=== PATIENT | male | born 1985 ===

== ENCOUNTER 2024-09-13 15:25 | Outpatient (AMB) | payer OTHER, SELFPAY ==
[2024-09-13 15:47] VITALS: BP 138/90; PULSE 78; TEMP 37.3; O2SAT 97
--- NOTE | 2024-09-13 15:47 | MHC.OFFWIV ---
Intake Vital Signs 09/13/24 15:47 Weight 289 lb BP 138/90 H Blood Pressure Location Rt brachial Position Sitting Pulse 78 Pulse Source Pulse Oximeter Temp 99.1 F Temp Source Oral Pulse Oximetry (%) 97 Oxygen Delivery Method Room Air Intake Visit Reasons: [employer] dizziness, upset stomach, headache Intake Note: Patient here for dizziness, GI upset and headache that started today. Patient Tobacco Use Status: Never used Tobacco Allergies No Known Allergies Allergy (Verified 09/13/24 15:49) Do you need a note to return to daycare/school/sports/work: No HPI HPI Comments History of Present Illness Details History - The patient is a 38-year-old male presenting with headache, dizziness, and gastrointestinal symptoms. - Symptoms had an acute onset around 2:00 PM today, marked by headache and dizziness, along with sensations of sweatiness. - Notably, the patient reported dry heaves but not actual vomiting. - Despite light sensitivity and discomfort from loud noises, there were no accompanying visual changes. - The patient denied symptoms such as chest or back pain, abdominal pain and did not present with fever. - He had not self-administered any treatment prior to evaluation. Physical Exam General: Cooperative, healthy appearing, comfortable and no acute distress Orientation/consciousness: Patient oriented x3 Limitations: No limitations Head: Normal to inspection Ears: Hearing grossly normal bilaterally, external ears normal, TM's bilat with erythema and purulence, slight bulging Nose: Normal external nose present, Normal nares present and No nasal discharge present Face and sinus: Normal facial exam and Yes sinuses nontender Mouth: Normal oral and palatal mucosa present and moist mucous membranes Throat: Tonsils with erythem and edema, airway patent, Yes uvula midline. Posterior oropharynx erythema Eyes: Appearance normal, both eyes and all related structures Neck: Normal visual inspection Respiratory: Normal respiratory effort, able to speak in complete sentences, no respiratory distress, not tachypneic, no tripod positioning and no use of accessory muscles Skin: No rashes or lesions noted Neuro: Patient oriented x3 Extremities: Normal to inspection and Yes no clubbing, cyanosis or edema PFSH Social History Patient Tobacco Use Status: Never used Tobacco Review of Systems Const All systems reviewed & are unremarkable except as noted in HPI and below Physical Exam Vital Signs: Last Vital Signs Temp 99.1 F 09/13/24 15:47 Pulse 78 09/13/24 15:47 BP 138/90 H 09/13/24 15:47 Pulse Ox 97 09/13/24 15:47 Oxygen Delivery Method Room Air 09/13/24 15:47 Assessment & Plan Assessment & Plan (1) Acute viral syndrome: Code(s): B34.9 - Viral infection, unspecified Plan: VSS, pt well appearing and PE remarkable for posterior oropharynx erythema, tonsillar erythema and slight swelling and bilateral otitis media. Zofran has been provided for nausea relief, and Tylenol is recommended for headache management. I have advised the patient to remain hydrated with electrolytes and rest to facilitate recovery. The plan will be revised pending the swab results, and further assessment is directed towards alleviating current symptoms. Follow-up will be arranged to communicate test outcomes and consider any changes in symptomology. The patient has been informed accordingly. Patient was informed and verbally consented to the use of an ambient scribe for clinic note documentation during this visit (2) Otitis media of both ears: Code(s): H66.93 - Otitis media, unspecified, bilateral Qualifiers: Otitis media type: suppurative Chronicity: acute Recurrence: non-recurrent Spontaneous tympanic membrane rupture: without spontaneous rupture Qualified Code(s): H66.003 - Acute suppurative otitis media without spontaneous rupture of ear drum, bilateral Plan: I have prescribed amoxicillin for the potential development of an acute otitis media based on the examination findings. Medications: New amoxicillin 875 mg PO Q12H 14 tabs 0RF ondansetron 4 mg PO Q8H PRN 10 tabs 0RF nausea and vomiting Coding Level of Care Code New Pt Level 3 (08670) Diagnoses Acute viral syndrome B34.9 Non-recurrent acute suppurative otitis media of both ears without spontaneous rupture of tympanic membranes H66.003 Otitis media type: suppurative Chronicity: acute Recurrence: non-recurrent Spontaneous tympanic membrane rupture: without spontaneous rupture
== END 2024-09-13 16:27 | disposition home or self-care (01) ==
PROVIDERS: Visit Provider Physician Assistant
DX: B34.9 Viral infection, unspecified (principal); H66.003 Acute suppurative otitis media without spontaneous rupture of ear drum, bilateral

== ENCOUNTER 2024-09-13 15:25 | Outpatient (REF) | payer OTHER, SELFPAY ==
[2024-09-14 11:59] LABS: Influenza A PCR NEGATIVE (Negative); Influenza B PCR NEGATIVE (Negative); Resp Syncy Virus RNA Qual PCR NEGATIVE (Negative); SARS COV2 PCR INHOUSE NEGATIVE (Negative)
== END 2024-09-13 15:26 | disposition home or self-care (01) ==
LOC: HO.LNP 15:25
PROVIDERS: Visit Provider Physician Assistant
DX: B34.9 Viral infection, unspecified (principal); H66.003 Acute suppurative otitis media without spontaneous rupture of ear drum, bilateral
CPT/HCPCS: 0241U